=== PATIENT | female | born 1955 | race Caucasian/White ===

== ENCOUNTER 2022-09-19 11:28 | Emergency (ER) | payer MEDICARE, SELFPAY ==
[2022-09-19 11:30] VITALS: BP 157/81; PULSE 85; RESP 16; TEMP 36.2; O2SAT 95; BMI 29.3
[2022-09-19 11:43] VITALS: BP 158/84; PULSE 73; RESP 13; O2SAT 96; BMI 29.6
--- NOTE | 2022-09-19 12:12 | EDS_ITS ---
HPI History of Present Illness Chief Complaint: Neuro S/Sx Informant: patient Narrative Narrative: Presenting with noted left-sided facial droop on Monday. There is no numbness. No headaches. No recent upper respiratory illness. No history of recent tick bites. No history of similar. Reporting concerns initially she had dental procedure left upper gum 3 weeks ago. She initially thought it was complications of this. She tried calling her PCP over the weekend however she did not get a call back. Prior similar symptoms: No PFSH PFSH Medical History Sciatica Spider bite Home Medications prednisone 20 mg tablet 60 mg PO DAILY #21 TABLETS 09/19/22 [Rx Last Taken Unknown] valacyclovir 1 gram tablet 1,000 mg PO TID #21 tabs 09/19/22 [Rx Last Taken Unknown] Allergy/AdvReac Type Severity Reaction Status Date / Time No Known Allergies Allergy Verified 09/19/22 11:44 Social History Smoking Status: Former smoker ROS ROS ED Constitutional Constitutional ED: Denies chills, fever(s) or sweats Eyes Eyes: Denies change in vision ENT ENT ED: Denies dysphagia or sore throat Cardiovascular Cardiovascular: Denies chest pain, leg edema, palpitations or racing heartbeat Respiratory/Chest Respiratory/Chest: Denies cough, dyspnea or dyspnea on exertion Gastrointestinal Gastrointestinal: Denies abdominal pain, diarrhea, nausea or vomiting Genitourinary Genitourinary ED: Denies dysuria, hematuria or urinary frequency Musculoskeletal Musculoskeletal: Denies back pain, extremity pain or neck pain Integumentary Denies rash or wounds Neurologic Neurologic: Reports weakness and other Details: Left facial weakness ; Denies headache(s) or paresthesias EXAM Physical Exam Const Vital Signs: 09/19/22 11:30 09/19/22 11:43 09/19/22 12:33 Temperature 97.1 F L Temperature Source Temporal Pulse Rate 85 73 83 Respiratory Rate 16 13 17 Blood Pressure 157/81 H 158/84 H 163/59 H Blood Pressure Mean 106 108 Pulse Ox 95 96 96 Oxygen Delivery Method Room Air Room Air Positive well nourished and well developed General Appearance ED: well developed and NAD HEENT Reports moist mucous membranes HEENT Narrative: Left sided motor weakness of the face, eyes would not close all the way. Sensation was intact. normocephalic and atraumatic Eyes PERRL, EOMs intact bilaterally and conjunctivae normal General Eye ED: Yes normal appearance of both eyes Neck no lymphadenopathy and supple General: Negative for tenderness Chest Wall Chest: Negative for tenderness Resp normal respiratory effort and normal air movement Effort and Inspection: symmetric chest movement; Negative for respiratory distress Cardio regular rate, regular rhythm and no murmurs Peripheral Pulses: pulses 2+ throughout GI normal to inspection, nondistended, normoactive bowel sounds and non-tender Palpation: Negative for guarding or rebound tenderness present Back/Spine no CVA tenderness and no thoracic nor lumbar tenderness Extremity normal to inspection General Extremety ED: Negative for edema or tenderness General Extremity: Negative for edema Neuro oriented x3 and no sensory deficits noted Neuro Narrative: See above, left cranial nerve VII motor deficit Sensorium / Orientation: awake and alert Skin no rashes or lesions noted and no wounds MDM MDM MDM Narrative Medical decision making narrative: Interventions / MDM: Differential diagnosis: Edmondson's palsy Diagnosis considered but do not suspect: Stroke, clinically Edmondson's palsy, motor nerve deficits My EKG interpretation: N/A Imaging independently reviewed and interpreted by myself: N/A External documents reviewed: N/A Test considered but not ordered:N/A ED course: Patient exam consistent with Edmondson's palsy. 7th cranial nerve deficits sensation intact. 48 hours of symptoms. There is no lesions in the ear for concerns of Alex Bajwa. Discussed started on prednisone and valacyclovir. She concerns of potential because she does have [facility], discussed valacyclovir is not absolutely necessary if it is too expensive. She will check with her pharmacy. Discussed rewetting drops to her eyes. Discussed with patient symptoms not likely from her dental procedure done 3 weeks ago. She is cleared to get her crown placed if she desires. Discussed following up with her PCP in 1 week to make sure symptoms are resolving as she states there is slight improvement compared to initially. All questions were answered. Re-evaluation: stable Disposition discussed with patient/family/significant other: Patient Case discussed with consulting clinician: N/A Discharge Plan Triage Chief Complaint: Neuro S/Sx ED Provider: Zeke Aguilera Dx/Rx/DC Orders Clinical Impression: Left-sided Edmondson's palsy Instructions: ED Edmondson's Palsy Prescriptions: New prednisone 20 mg tablet 60 mg PO DAILY Qty: 21 0RF valacyclovir 1 gram tablet 1,000 mg PO TID Qty: 21 0RF Primary Care Provider: Sharon Ward Referrals: Sharon Ward MD [[facility]] - 1 Week Activity Restrictions/Additional Instructions: Your exam consistent with left-sided Edmondson's palsy. Take prednisone and valacyclovir as prescribed. Discussed with pharmacy about a rewetting drop for your left eye. If somehow valacyclovir is too expensive, this is not absolutely necessary if you do not want to fill or take this. Follow-up with your doctor in 1 week for evaluation. You are cleared for your crown to be placed if you want to do this earlier. Disposition Disposition: Home, Self Care Discharge Date/Time: 09/19/22 12:40
[2022-09-19 12:33] VITALS: BP 163/59; PULSE 83; RESP 17; O2SAT 96
== END 2022-09-19 12:40 | disposition home or self-care (01) ==
PROVIDERS: Emergency Provider Emergency Medicine; PCP Family Medicine; Visit Provider Emergency Medicine
DX: G51.0 Bell's palsy (principal); Z87.891 Personal history of nicotine dependence
CPT/HCPCS: 99282

== ENCOUNTER 2024-01-22 11:54 | Outpatient (CLI) | payer MEDICARE, SELFPAY ==
[2024-01-22 15:50] LABS: Protein, Urine (Random) 103.1 mg/dL (<11.9); Protein:Creat Ratio 469 mg/g CRE (0-200)
[2024-01-22 15:57] LABS: Anion Gap 7 (5-15); BUN 13 mg/dL (7-18); Calcium,Total 9.8 mg/dL (8.5-10.1); Chloride 108 mmol/L (98-107); Cholesterol 192 mg/dL (200); Creatinine, Serum 0.72 mg/dL (0.55-1.02); EST Glomerular Filtration Rate 85 mL/min (>60); Est Glom Filt Rate - Afr Amer 103 mL/min (>60); Glucose 155 mg/dL (74-106); High Density Lipoprotein 61 mg/dL; Potassium 3.8 mmol/L (3.5-5.1); Sodium Level 139 mmol/L (136-145); Triglycerides 169 mg/dL; Very Low Density Lipoprotein 34 mg/dL (5-40)
== END 2024-01-22 23:59 | disposition home or self-care (01) ==
PROVIDERS: PCP Family Medicine; Visit Provider Family Medicine
DX: I10 Essential (primary) hypertension (principal)
CPT/HCPCS: 36415; 80048; 80061; 82570; 84156